=== PATIENT | male | born 1955 | race Caucasian/White ===

== ENCOUNTER 2017-10-08 09:01 | Outpatient (CLI) | payer MEDICARE ==
[~2017-10-08] VITALS: Ht 180.3 cm; Wt 103.1 kg
[2017-10-08 09:28] VITALS: BP 133/93
[2017-10-08 10:03] LABS: BASOPHILS # (AUTO) 0.1 10^3/uL (0.0-0.1); BASOPHILS % (AUTO) 1 % (0-10); EOSINOPHILS # (AUTO) 0.3 10^3/uL (0.0-0.3); EOSINOPHILS % (AUTO) 4 % (0-10); LYMPHOCYTES # (AUTO) 1.3 X 10^3 (1.0-4.0); LYMPHOCYTES % (AUTO) 18 % (12-44); MEAN CORPUSCULAR HEMOGLOBIN 29 PG (25-34); MEAN CORPUSCULAR HGB CONC 33 G/DL (32-36); MEAN CORPUSCULAR VOLUME 89 FL (80-99); MEAN PLATELET VOLUME 9.6 FL (7.4-10.4); MONOCYTES # (AUTO) 0.6 X 10^3 (0.0-1.0); MONOCYTES % (AUTO) 8 % (0-12); NEUTROPHILS # (AUTO) 5.1 X 10^3 (1.8-7.8); NEUTROPHILS % (AUTO) 70 % (42-75); PLATELET COUNT 202 10^3/uL (130-400); RED BLOOD COUNT 4.39 10^6/uL (4.35-5.85); RED CELL DISTRIBUTION WIDTH 13.7 % (10.0-14.5); WHITE BLOOD COUNT 7.4 10^3/uL (4.3-11.0)
[2017-10-08] MEDS ORDERED: TIZA4TAB3 PO (10:12)
[2017-10-08] MEDS ORDERED: METO50TA2 PO (10:12)
[2017-10-08] MEDS ORDERED: ACYC400T PO (10:12)
[2017-10-08] MEDS ORDERED: FERR-84 PO (10:12)
[2017-10-08] MEDS ORDERED: MELA10CA2 PO (10:12)
[2017-10-08] MEDS ORDERED: OMEG-154 PO (10:12)
[2017-10-08] MEDS ORDERED: RANI-515 PO (10:12)
[2017-10-08] MEDS ORDERED: OMEP20TA7 PO (10:12)
[2017-10-08] MEDS ORDERED: GABA-488 PO (10:12)
[2017-10-08] MEDS ORDERED: L.AC1CAP6 PO (10:12)
[2017-10-08] MEDS ORDERED: SERT100T8 PO (10:12)
[2017-10-08] MEDS ORDERED: CLON0.5T3 PO (10:12)
== END 2017-10-08 11:02 | disposition home or self-care (01) ==
LOC: PREOP 09:01
PROVIDERS: ATTEND Orthopaedic Surgery
DX: Z01.812 Encounter for preprocedural laboratory examination (principal); Z11.2 Encounter for screening for other bacterial diseases; M96.0 Pseudarthrosis after fusion or arthrodesis; Z22.322 Carrier or suspected carrier of Methicillin resistant Staphylococcus aureus
CPT/HCPCS: 36415; 85025; 86850; 86900; 86901; 87081

== ENCOUNTER 2017-10-22 06:30 | Inpatient (IN) | payer MEDICARE ==
[~2017-10-22] VITALS: Ht 180.3 cm; Wt 103.1 kg
[~2017-10-22 06:30] MED LIST: ACYC400T PO; CLON0.5T3 PO; FERR-84 PO; GABA-488 PO; L.AC1CAP6 PO; MELA10CA2 PO; METO50TA15 PO; OMEG-154 PO; OMEP20TA7 PO; RANI-515 PO; SERT100T8 PO; TIZA4TAB3 PO
[2017-10-22] MEDS ORDERED: LACTATED RINGERS 1,000 ML IV PRN (07:14)
[2017-10-22] MEDS ORDERED: FAMOTIDINE 20MG/2ML IV (PEPCID) IV ONE ×2 (07:15→07:30)
[2017-10-22] MEDS ORDERED: CLINDAMYCIN INJECTION 600 MG in NS (IVPB) 50 ML IV ONE (07:15)
[2017-10-22] MEDS ORDERED: NS (IVPB) 50 ML ONE (07:22)
[2017-10-22] MEDS ORDERED: CLINDAMYCIN 600 MG/4ML (CLEOCIN) VIAL ONE (07:22)
[2017-10-22] MEDS ORDERED: ONDANSETRON 4 MG/2 ML (SDV) Z0FRAN ONE (07:41)
[2017-10-22] MEDS ORDERED: SEVOFLURANE (ULTANE) 15 ML INHAL SOLN ONE ×11 (07:41→11:05)
[2017-10-22] MEDS ORDERED: DEXAMETHASONE 10 MG/ML (DECADRON) 1 ML VIAL ONE (07:41)
[2017-10-22] MEDS ORDERED: SUCCINYLCHOLINE INJ 100 MG/5 ML SYR ONE (07:41)
[2017-10-22] MEDS ORDERED: LIDOCAINE PF 2% 5 ML (XYLOCAINE) VIAL ONE (07:41)
[2017-10-22] MEDS ORDERED: MIDAZOLAM 2 MG/2 ML (VERSED) VIAL ONE (07:41)
[2017-10-22] MEDS ORDERED: DEXMEDETOMIDINE 200 MCG/2 ML (PRECEDEX) VIAL IV ONE ×2 (07:41→10:41)
[2017-10-22] MEDS ORDERED: fentaNYL INJECTION 250 MCG/5 ML AMP ONE (07:41)
[2017-10-22] MEDS ORDERED: proPOfol 200 MG/20 ML (DIPRIVAN) VIAL IV ONE (07:41)
[2017-10-22] MEDS ORDERED: ROCURONIUM 50 MG/5 ML (ZEMURON) VIAL IV ONE (07:41)
[2017-10-22] MEDS ORDERED: TRANEXAMIC ACID 100 MG/ML 10 ML INJECTION IV ONE (09:03)
[2017-10-22] MEDS ORDERED: BUP/EPI 0.5% 1:200,000 (MARCAINE) 10ML VIAL IJ ONE (09:09)
[2017-10-22] MEDS: LACTATED RINGERS 1,000 ML IV PRN ×2 (09:52→14:00)
[2017-10-22] MEDS ORDERED: NS (IVPB) 100 ML ONE (10:41)
[2017-10-22] MEDS ORDERED: BACITRACIN 100,000 UNIT/NS 1000 ML POUR BOTTLE IR ONE ×2 (10:45)
[2017-10-22] MEDS ORDERED: VANCOMYCIN 1000 MG/VIAL ONE (12:17)
[2017-10-22] MEDS ORDERED: ONDANSETRON 4 MG/2 ML (SDV) Z0FRAN IVP PRN (13:15)
[2017-10-22] MEDS ORDERED: HYDROmorphone (DILAUDID) 2 MG/ML VIAL IVP PRN (13:15)
[2017-10-22] MEDS: morphine INJ 10 MG/ML 1ML (SYR OR VIAL) IVP PRN ×2 (13:21→13:25)
[2017-10-22] MEDS ORDERED: ACETAMINOPHEN 325 MG TABLET/CAPLET (TYLENOL) PO PRN (13:45)
[2017-10-22] MEDS ORDERED: ONDANSETRON 4 MG/2 ML (SDV) Z0FRAN IV PRN (13:45)
[2017-10-22] MEDS ORDERED: BISACODYL 10 MG SUPP (DULCOLAX) PR PRN (13:45)
[2017-10-22] MEDS ORDERED: BISACODYL 5 MG (DULCOLAX) TABLET PO PRN (13:45)
[2017-10-22 15:15] VITALS: BP 90/55
[2017-10-22 15:35] VITALS: BP 95/55
[2017-10-22] MEDS ORDERED: INFLUENZA TRIvalent 2017-2018 0.5 ML/45 MCG SYR IM ONE (15:45)
[2017-10-22 16:05] VITALS: BP 107/62
[2017-10-22] MEDS: oxyCODONE/APAP 5/325MG (PERCOCET 5) TABLET PO PRN (16:05)
[2017-10-22] MEDS: FERROUS SULF 325 MG (IRON) TAB PO SCH (16:05)
[2017-10-22] MEDS: GABAPENTIN 300 MG (NEURONTIN) CAP PO SCH ×2 (16:05→21:46)
[2017-10-22] MEDS: morphine INJ 4 MG/ML 1 ML (VIAL/SYRINGE) IVP PRN ×2 (16:08→21:48)
[2017-10-22 16:35] VITALS: BP 100/58
--- NOTE | 2017-10-22 17:02 | Diagnostic Imaging Report ---
EXAMINATION: Intraoperative view of the lumbar spine. INDICATION: Revision of lumbar spine fusion. FLUOROSCOPY TIME: 4 seconds. IMPRESSION: The provided image demonstrates posterior fusion hardware and evidence of laminectomy involving the lower lumbar spine with screws seen bilaterally through the SI joints. There is suggestion of disc cage placement involving the lower three lumbar spine levels and anterior fusion hardware. Dictated by: Dictated on workstation # [id number]
[2017-10-22 19:25] VITALS: BP 115/60
[2017-10-22] MEDS ORDERED: raNItidine (ZANTAC) 150 MG TAB NON-FORMULARY PO SCH (21:00)
[2017-10-22] MEDS: ACYCLOVIR 400 MG TABLET (ZOVIRAX) PO SCH (21:46)
[2017-10-22] MEDS: clonazePAM 0.5 MG (KlonoPIN) TAB PO SCH (21:47)
[2017-10-22] MEDS: FAMOTIDINE 20 MG (PEPCID) TABLET PO SCH (21:47)
[2017-10-22] MEDS: DOCUSATE SODIUM 100 MG (COLACE) CAP PO SCH (21:47)
--- NOTE | 2017-10-22 23:38 | OPERATIVE REPORT ---
DATE OF SERVICE: 10/22/2017 SURGEON: Mike Mabry D.O. SURFACER: Brian Chappell This is a medically necessary procedure. Master Chef is necessary for retraction of vital neurovascular structures. Without an assistant production editor, the procedure would not be possible. PREOPERATIVE DIAGNOSES: 1. Pseudoarthrosis. 2. Failure of internal hardware. 3. Back pain. POSTOPERATIVE DIAGNOSES: 1. Pseudoarthrosis. 2. Failure of internal hardware. 3. Back pain. PROCEDURE PERFORMED: 1. Removal of hardware. 2. Exploration of fusion. 3. Revision fusion T8 to pelvis. 4. Revision posterior instrumentation T8 to pelvis. 5. Pelvic fixation at the end of the construct. 6. Use of bone morphogenic protein. 7. Use of local bone autograft. COMPLICATIONS: None. SPECIMEN SENT: None. DRAIN PLACED: A subfascial Hemovac drain. ANESTHESIA: General endotracheal tube anesthesia with local anesthetic. ESTIMATED BLOOD LOSS: Minimal. HISTORY OF PRESENT ILLNESS: The patient is a very well known patient of mine, 62-year-old patient who has undergone multiple prior thoracic and lumbar instrumented fusion procedures without significant difficulty getting a fusion on the patient and eventually his hardware fractured on both the left and the right and his screws were noted to be loose and a pseudoarthrosis was evident on imaging. The patient had severe symptoms associated with the pseudoarthrosis. He failed conservative measures. He did wish to proceed with revision, posterior instrumentation and fusion. He understood the risks and benefits. OPERATION: The patient was identified by name on wrist band in the preoperative holding area, his operative site was signed, consent was signed. SCDs were placed. Neuro monitoring was set up and antibiotics were started. He was taken to the operating room theater and placed under general endotracheal tube anesthesia and transferred to the operating room table in the prone position. All bony prominences were well padded. He was prepped and draped in the usual sterile fashion. Formal timeout was conducted. At this point, a midline lumbar incision was then made. This incision extended from T8 down to the pelvis. Bilateral subperiosteal approach then took place. Please note there was significant scar tissue, which made the remainder of the procedure quite difficult. After my exposure of all of the hardware, I did remove all of the set screws and I have removed the jamal on the left and the jamal on the right. The L5-S1 and pelvic screws on the right were solid; however, the L5 and S1 screws on the left were quite loose. Therefore, I did remove those 2 pedicle screws and re-instrumented with 8.5 mm pedicle screws achieving a better purchase; however, it was not great. At this point, I measured and cut a new 5.5 mm Medtronic jamal and I bent both of them to the appropriate contour. I passed these rods on both the left and the right through the [place] pedicle screws at T8, T9, T10, T11, T12. Please note that the pedicle screw at L1 had been fractured on both sides and this screw remnant was removed on both sides prior to placing the jamal. Once I had settled the jamal through the tulips on all of the screws, which included down to the pelvis, I placed set screws and then finally tightened those set screws. Please note that I did reuse the set screws in the thoracic part of this procedure. Once all of the instrumentation was in place and tightened, I did irrigate the wound with 2 liters of antibiotic-enhanced irrigation. I placed a deep subfascial Hemovac drain. I decorticated the remaining posterior bony elements. Please note that I did use a [place] rongeur to remove as much scar tissue off of the lateral masses that I could to promote posterior spinal fusion. I packed collagen soaked with bone morphogenic protein as well as allograft in the left and the right gutter to promote posterior spinal fusion. Please note that I also added an additional jamal on the right side using lateral connectors for increased stability to prevent future hardware failure. I passed a subfascial Hemovac drain and sewed it into place. I closed the wound in my usual layered fashion utilizing 0 Vicryl, followed by 2-0 Vicryl, followed by juan m for skin. I applied dressings and I took the patient in the supine position to the PACU where he awoke without incident. He tolerated the procedure well. Plan at this time is to get the patient out of bed on postop day #1, discontinue his Ellis and his drain per my protocol. Please note instrumentation utilized for this was Medtronic for everything. Note, neuro monitoring was stable throughout the procedure. Job ID: [id number] DocumentID: [id number] Dictated Date: 10/22/2017 13:24:53 Hydraulic Engineer Date: 10/22/2017 22:01:57 Dictated By: MIKE MABRY DO
[2017-10-23] VITALS: BP 122/62
[2017-10-23] MEDS: oxyCODONE/APAP 5/325MG (PERCOCET 5) TABLET PO PRN ×3 (01:14→20:15)
[2017-10-23 04:00] VITALS: BP 126/60
[2017-10-23 05:32] LABS: HEMOGLOBIN 10.8 G/DL (13.3-17.7); MEAN PLATELET VOLUME 9.9 FL (7.4-10.4); RED BLOOD COUNT 3.63 10^6/uL (4.35-5.85); RED CELL DISTRIBUTION WIDTH 14.1 % (10.0-14.5); WHITE BLOOD COUNT 10.6 10^3/uL (4.3-11.0)
[2017-10-23] MEDS: morphine INJ 4 MG/ML 1 ML (VIAL/SYRINGE) IVP PRN (05:39)
[2017-10-23 05:53] LABS: ALANINE AMINOTRANSFERASE 11 U/L (0-55); ALBUMIN 3.5 GM/DL (3.2-4.5); ALKALINE PHOSPHATASE 72 U/L (40-136); BILIRUBIN,TOTAL 0.3 MG/DL (0.1-1.0); BUN/CREATININE RATIO 11; CALCIUM 8.7 MG/DL (8.5-10.1); CARBON DIOXIDE 26 MMOL/L (21-32); CHLORIDE 106 MMOL/L (98-107); CREATININE SERUM 0.89 MG/DL (0.60-1.30); GFR ESTIMATED > 60; GLUCOSE 139 MG/DL (70-105); POTASSIUM 4.7 MMOL/L (3.6-5.0); SODIUM 140 MMOL/L (135-145); TOTAL PROTEIN 6.2 GM/DL (6.4-8.2)
[2017-10-23] MEDS: FERROUS SULF 325 MG (IRON) TAB PO SCH ×3 (06:05→16:03)
[2017-10-23] MEDS: MULTIVIT W/MINERALS TAB (THERAGRAN M) PO SCH (06:06)
--- NOTE | 2017-10-23 07:39 | Progress Note (SOAP) ---
Subjective Date Seen by Provider: Oct 23, 2017 Time Seen by Provider: 07:36 Subjective/Events-last exam KARLEE. S/p revision lumbar PSIF. Doing very well with minimal pain. denies radicular leg pain. denies numbness or tinlging. would like to go home tomorrow. Objective Exam Vital Signs Date Time Temp Pulse Resp B/P (MAP) Pulse Ox O2 Delivery O2 Flow Rate FiO2 10/23/17 06:57 96 Nasal Cannula 2.50 10/23/17 04:00 97.3 73 18 126/60 (82) 97 Nasal Cannula 2.50 10/23/17 00:00 97.5 68 17 122/62 (82) 94 Nasal Cannula 2.50 10/22/17 19:25 97.7 72 20 115/60 (78) 98 Nasal Cannula 2.50 10/22/17 17:54 Nasal Cannula 3.50 10/22/17 16:35 97.7 58 20 100/58 (72) 98 Nasal Cannula 2.50 10/22/17 16:05 97.7 60 20 107/62 (77) 97 Nasal Cannula 2.50 10/22/17 15:35 97.2 56 20 95/55 (68) 95 Nasal Cannula 2.50 10/22/17 15:15 96.6 55 20 90/55 (67) 95 Nasal Cannula 2.50 10/22/17 09:55 98.0 I & O 10/23/17 07:00 Intake Total 2694 ml Output Total 3790 ml Balance -1096 ml Capillary Refill : General Appearance: No Apparent Distress Neurologic/Psychiatric: Other (lumbar wound CDI, 5/5 motor antonio LE, NVSI, 2/4 DP , PT) Results Lab Laboratory Tests 10/23/17 05:19: White Blood Count 10.6, Red Blood Count 3.63L, Hemoglobin 10.8L, Hematocrit 33L , Mean Corpuscular Volume 91, Mean Corpuscular Hemoglobin 30, Mean Corpuscular Hemoglobin Concent 33, Red Cell Distribution Width 14.1, Platelet Count 164, Mean Platelet Volume 9.9, Sodium Level 140, Potassium Level 4.7, Chloride Level 106, Carbon Dioxide Level 26, Anion Gap 8, Blood Urea Nitrogen 10, Creatinine 0.89, Estimat Glomerular Filtration Rate > 60, BUN/Creatinine Ratio 11, Glucose Level 139H, Calcium Level 8.7, Total Bilirubin 0.3, Aspartate Amino Transf (AST/ SGOT) 16, Alanine Aminotransferase (ALT/SGPT) 11, Alkaline Phosphatase 72, Total Protein 6.2L, Albumin 3.5 Assessment/Plan Assessment/Plan Assess & Plan/Chief Complaint ASSESSMENT: s/p lumbar revision PSIF POD 1 PLAN: OOB with assist pain control d/c steiner and drain per protocol plan to d/c home sunday Clinical Quality Measures DVT/VTE Risk/Contraindication: Risk Factor Score Per Nursin RFS Level Per Nursing on Admit: 4+=Very High MARCELLO HOFFMANN DO Oct 23, 2017 07:39
[2017-10-23 08:00] VITALS: BP 112/64
--- NOTE | 2017-10-23 09:21 | Physical Therapy Evaluation ---
PT Evaluation-General Medical Diagnosis Admission Date Oct 22, 2017 at 06:30 Medical Diagnosis: revision lumbar PSIF Onset Date: Oct 22, 2017 Therapy Diagnosis Therapy Diagnosis: debility Height/Weight Height (Feet): 5 Height (Inches): 11.00 Weight (Pounds): 227 Weight (Ounces): 6.0 Precautions Precautions/Isolations: Standard Precautions Weight Bear Status Right Lower Extremity: Right Full Weight Bearing Left Lower Extremity: Left Full Weight Bearing Referral Physician: Raghavendra Reason for Referral: Evaluation/Treatment Medical History Current History per patient report, he fell ~ 4-5 months ago resulting in hardware "dislodging" Reviewed History: Yes Social History Home: Single Level Current Living Status: Spouse Prior/Core FIM Prior Level of Function Functional [place] Measure 0=Not Assessed/NA 4=Minimal Assistance 1=Total Assistance 5=Supervision or Setup 2=Maximal Assistance 6=Modified [place] 3=Moderate Assistance 7=Complete [place] Bed Mobility: 6 Transfers (B,C,W/C) (FIM): 6 Gait: 6 PT Evaluation-Current Subjective Patient states, "I don't know why you guys think this doesn't hurt. I can't believe I will be going home tomorrow." Pain Numeric Pain Scale: 5-Moderate Pain Location: Posterior Location Body Site: Back Pain Description: Ache, Acute Comment: incisional pain Objective Patient Orientation: Normal For Age Problem Solving: Good Attachments: Ellis Catheter, IV patient donned back brace with set up only ROM/Strength ROM Lower Extremities bilateral LE WNL Strength Lower Extremities right knee flexion/extension 4/5; hip flexion 4/5; DF/PF 4/5 left knee flexion/extension 4/5; hip flexion 4/5; DF/PF 4/5 Integumentary/Posture Integumentary refer to nursing notes Bowel Incontinence: No Bladder Incontinence: Ellis Cath Posture WFL; forward head, rounded shoulder posture in stand Neuromuscular (Tone, Coordination, Reflexes) grossly intact Sensory Vision: Wears Glasses Hearing: Functional Sensation Right Lower Extremit: Intact Sensation Left Lower Extremity: Intact Transfers Functional [place] Measure 0=Not Assessed/NA 4=Minimal Assistance 1=Total Assistance 5=Supervision or Setup 2=Maximal Assistance 6=Modified [place] 3=Moderate Assistance 7=Complete [place] Transfers (B, C, W/C) (FIM): 6 Scootin Rollin Supine to/from Sit: 6 Sit to/from Stand: 6 Gait Mode of Locomotion: Walk Anticipated Mode of Locomotion: Walk Gait (FIM): 6 Distance (FIM): 3=150 ft Distance: 550' Gait Level of Assist: 6 Gait Assistive Device: FWW Comments/Gait Description safe and functional with FWW Balance Sitting Static: Normal Sitting Dynamic: Normal Standing Static: Normal Standing Dynamic: Normal Assessment/Needs 62 y.o. male, will benefit from short term skilled PT to address functional mobility to ensure safe return to home with spouse at maximum LOF. Rehab Potential: Good PT Short Term Goals Short Term Goals Time Frame: Oct 26, 2017 Transfers (B,C,W/C) (FIM): 6 Gait (FIM): 6 Distance (FIM): 3=150 ft Gait Level of Assist: 6 Gait Assistive Device: None, FWW PT Plan Treatment/Plan Treatment Plan: Continue Plan of Care Treatment Plan: Education, Functional Activity Gómez, Functional Strength, Gait , Safety, Therapeutic Exercise Treatment Duration: Oct 26, 2017 Frequency: 7 times per week Estimated Hrs Per Day: .25 hour per day Patient and/or Family Agrees t: Yes Safety Risks/Education Patient Education: Safety Issues Teaching Recipient: Patient Teaching Methods: Discussion Response to Teaching: Verbalize Understanding Discharge Recommendations Therapy D/C Recommendations: Home w/ Family Support Time/GCodes Time In: 820 Time Out: 844 Total Billed Treatment Time: 24 Total Billed Treatment 1 visit [facility] 24 min NORBERTO LAN PT Oct 23, 2017 09:21
[2017-10-23] MEDS: FAMOTIDINE 20 MG (PEPCID) TABLET PO SCH ×2 (09:29→20:14)
[2017-10-23] MEDS: DOCUSATE SODIUM 100 MG (COLACE) CAP PO SCH ×2 (09:29→20:14)
[2017-10-23] MEDS: clonazePAM 0.5 MG (KlonoPIN) TAB PO SCH ×2 (09:29→20:14)
[2017-10-23] MEDS: SERTRALINE 100 MG (ZOLOFT) TAB PO SCH (09:29)
[2017-10-23] MEDS: GABAPENTIN 300 MG (NEURONTIN) CAP PO SCH ×3 (09:29→20:14)
[2017-10-23] MEDS: ACYCLOVIR 400 MG TABLET (ZOVIRAX) PO SCH ×2 (09:29→20:15)
[2017-10-23] MEDS: meTOprolol TARTRATE 50 MG (LOPRESSOR) TAB PO SCH (09:31)
--- NOTE | 2017-10-23 10:25 | Consultation-Hospitalist ---
HPI History of Present Illness: HPI/Chief Complaint Pt is a 62yoCM with a PMH of HTN who was admitted under ortho services following PSIF. He reports he has had multiple surgeries on his back in the past and he feels he is doing well. He has been up and ambulating. He is passing gas. He is eating and drinking well. He otherwise has no concerns. He would like his steiner NE-ed and feels he will be able to ambulate to the bathroom. He has a history of HTN and it was well controlled on atenolol but was recently switched to metoprolol but he has tolerated it well. Source: patient Exam Limitations: no limitations Date Seen 10/23/17 Attending Physician Mike Mabry DO PCP No,Local Physician Referring Physician Dr Mabry Date of Admission Oct 22, 2017 at 06:30 Home Medications & Allergies Home Medications Reviewed patient Home Medication Reconciliation Form Allergies Allergies Coded Allergies Sulfa (Sulfonamide Antibiotics) (Verified Allergy, Severe, YOUNG-ERIN SYNDROME, 10/22/17) Penicillins (Verified Allergy, Mild, RASH, 10/22/17) Past Iqeqroc-Afxxzs-Zvfqtj Hx Patient Social History Alcohol Use: Denies Use Recreational Drug Use: No Smoking Status: Never a Smoker Physical Abuse Screen: No Sexual Abuse: No Recent Foreign Travel: No Contact w/other who traveled: No Recent Hopitalizations: No Recent Infectious Disease Expo: No Immunizations Up To Date Date of Influenza Vaccine: Aug 05, 2016 Seasonal Allergies Seasonal Allergies: No Surgeries Yes (LYNNE TKR, R ELBOW X6, BACK X7, LYNNE CTR, R HAND NERVES, LYNNE KNEE SCOPES) Respiratory No Cardiovascular Yes (HX OCC PVC'S) Neurological Yes (RELATED TO BACK/NECK PROBLEMS) Reproductive System Sexually Transmitted Disease: No HIV/AIDS: No Genitourinary Yes Kidney Stones Gastrointestinal Yes Gastroesophageal Reflux Musculoskeletal Yes Degenerate Disk Disease, Arthritis, Chronic Back Pain Endocrine History of Endocrine Disorders: No HEENT History of HEENT Disorders: Yes (GLASSES, DENTURES) Loss of Vision: Bilateral Hearing Impairment: Denies Cancer No Psychosocial History of Psychiatric Problem: Yes Behavioral Health Disorders: Anxiety, Depression Integumentary History of Skin or Integumenta: No Blood Transfusions History of Blood Disorders: Yes (ANEMIA) Family Medical History Family Hx: FH: HTN (hypertension) 19 FATHER 19 MOTHER FH: heart disease 19 FATHER 19 MOTHER FHx: asthma 19 FATHER 19 MOTHER Review of Systems Constitutional: No chills, No fever EENTM: No nose congestion, No throat pain Respiratory: No cough, No short of breath Cardiovascular: No chest pain, No edema, No palpitations Gastrointestinal: No abdominal pain, No constipation, No diarrhea, No nausea, No vomiting Genitourinary: No dysuria, No frequency Musculoskeletal: back pain Skin: No lesions, No rash Psychiatric/Neurological: Denies Headache, Denies Numbness, Denies Tingling Physical Exam Physical Exam Vital Signs Vital Sign - Last 12Hours 10/22/17 10/22/17 09:55 15:15 Temp 98.0 Pulse 55 Resp 20 B/P (MAP) 90/55 (67) Pulse Ox 95 O2 Delivery Nasal Cannula O2 Flow Rate 2.50 Capillary Refill : General Appearance: No Apparent Distress, WD/WN HEENT: PERRL/EOMI, Moist Mucous Membranes Neck: Non Tender, Supple Respiratory: Lungs Clear, No Respiratory Distress Cardiovascular: Regular Rate, Rhythm, No Murmur Gastrointestinal: Normal Bowel Sounds, Non Tender, Soft Back: Other (brace in place) Extremity: Normal Capillary Refill, No Calf Tenderness Neurologic/Psychiatric: Alert, Oriented x3, Normal Mood/Affect Skin: Normal Color, Warm/Dry Results Results/Procedures Lab Laboratory Tests 10/23/17 05:19 Assessment/Plan Admission Diagnosis s/p PSIF Diagnosis/Problems Diagnosis/Problems (1) HTN (hypertension) Assessment & Plan: Continue Metoprolol well controlled Qualifiers: Qualified Codes: I10 - Essential (primary) hypertension (2) Normocytic anemia Assessment & Plan: Likely due to acute loss from surgery (3) Prophylactic measure Assessment & Plan: Saline lock Bowel regimen Reg diet Clinical Quality Measures DVT/VTE Risk/Contraindication: Risk Factor Score Per Nursin RFS Level Per Nursing on Admit: 4+=Very High SERGEY CHARLES MD Oct 23, 2017 10:25
--- NOTE | 2017-10-23 11:15 | Diagnostic Imaging Report ---
EXAMINATION: Three views of the lumbar spine. INDICATION: Postoperative revision posterior fusion. FINDINGS: There are posterior fusion transpedicular screws and connecting rods seen in the lower thoracic and lumbar spine. There are fractured transpedicular screws within the bony tract at the L2, L3, and L4 levels. Transpedicular screws through L5 and S1 and through the SI joints at the S2 level appear intact as well as transpedicular screws around the thoracolumbar junction. There is also anterior fusion hardware and disc cage markers seen involving L2-3, L3-4, L4-5, and L5-S1. There is suggestion of osseous fusion at these levels except for the vertebral bodies at L3-4 where there is probable pseudoarthrosis. IMPRESSION: Post surgical changes with hardware description as above. Dictated by: Dictated on workstation # [id number]
[2017-10-23 12:00] VITALS: BP 124/73
--- NOTE | 2017-10-23 14:33 | Physical Therapy Daily Note ---
PT Daily Note-Current Subjective Patient is very agreeable to participate with therapy. He reports he is ready to go home tomorrow. Pain Numeric Pain Scale: 5-Moderate Pain Location: Posterior Location Body Site: Back Pain Description: Ache, Acute Mental Status Patient Orientation: Normal For Age donns back brace independently Transfers Functional [place] Measure 0=Not Assessed/NA 4=Minimal Assistance 1=Total Assistance 5=Supervision or Setup 2=Maximal Assistance 6=Modified [place] 3=Moderate Assistance 7=Complete IndependenceIRFPAI Quality Coding Scale 6 Independent with activity with or without an assistive device 5 Patient requires set up or clean up by helper. Patient completes activity by themselves 4 Supervision or touching assist (CGA). [place] provide cues , steadying assist 3 The helper provides less than half the effort to complete the activity 2 The helper provides more than half the effort to complete the activity 1 Dependent. The helper does all the effort to complete an activity 7 Patient refused to complete or attempt activity 9 The patient did not perform the activity before the current illness or injury 88 Not attempted due to Medical conditions or safety concerns Transfers (B, C, W/C) (FIM): 6 Scootin Rollin Supine to/from Sit: 6 Sit to/from Stand: 6 Weight Bearing Right Lower Extremity: Right Full Weight Bearing Left Lower Extremity: Left Full Weight Bearing Gait Training Gait (FIM): 6 Distance (FIM): 3=150 ft Distance: 400' Gait Level of Assist: 6 Gait Assistive Device: FWW Assessment Patient has been instructed to ambulate PRN in hallway. RN notified. Patient to dismiss to home with spouse tomorrow. PT Short Term Goals Short Term Goals Time Frame: Oct 26, 2017 Transfers (B,C,W/C) (FIM): 6 Gait (FIM): 6 Distance (FIM): 3=150 ft Gait Level of Assist: 6 Gait Assistive Device: None, FWW PT Plan Treatment/Plan Treatment Plan: Continue Plan of Care Treatment Plan: Education, Functional Activity Gómez, Functional Strength, Gait , Safety, Therapeutic Exercise Treatment Duration: Oct 26, 2017 Frequency: 7 times per week Estimated Hrs Per Day: .25 hour per day Patient and/or Family Agrees t: Yes Time/GCodes Time In: 1401 Time Out: 1415 Total Billed Treatment Time: 14 Total Billed Treatment 1 visit [facility] 14 min NORBERTO LAN PT Oct 23, 2017 14:33
[2017-10-23 16:00] VITALS: BP 123/60
--- NOTE | 2017-10-23 17:07 | Anesthesia-General Post-Op ---
General Patient Condition Mental Status/LOC: Same as Preop Cardiovascular: Satisfactory Nausea/Vomiting: Absent Respiratory: Satisfactory Pain: Controlled Complications: Absent Post Op Complications Complications None Follow Up Care/Instructions Patient Instructions None needed. Anesthesia/Patient Condition Patient Condition Patient is doing well, no complaints, stable vital signs, no apparent adverse anesthesia problems. No complications reported per nursing. ALEJANDRO MONTALVO CRNA Oct 23, 2017 17:07
[2017-10-23 20:00] VITALS: BP 147/81
[2017-10-24] VITALS: BP 158/81
[2017-10-24] MEDS: oxyCODONE/APAP 5/325MG (PERCOCET 5) TABLET PO PRN ×2 (00:50→05:49)
[2017-10-24] MEDS: FERROUS SULF 325 MG (IRON) TAB PO SCH ×2 (05:49→11:25)
[2017-10-24] MEDS: MULTIVIT W/MINERALS TAB (THERAGRAN M) PO SCH (05:49)
--- NOTE | 2017-10-24 06:57 | Discharge Summary ---
Diagnosis/Chief Complaint Date of Admission Oct 22, 2017 at 06:30 Date of Discharge Oct 24 2017 Discharge Date: Oct 24, 2017 Admission Diagnosis Admission Diagnosis pseudoarthrosis Discharge Diagnosis pseudoarthrosis Reason Hospital Visit revision posterior spinal fusion, replacement of lumbar hardware Discharge Summary Hospital Course Hospital Course Mr Mathis was admitted for revision lumbar fusion which was peformed without complication and he tolerated well. By POD #2 he was stable, his pain was controlled and he was ambulating with assistance and progressing with therapy. Labs Laboratory Tests 10/23/17 05:19: Red Blood Count 3.63L, Hemoglobin 10.8L, Hematocrit 33L, Glucose Level 139H, Total Protein 6.2L Radiology Reviewed Lumbar AP and lateral x-rays reviewed showing post operative hardware changes without change from intra operative placement Procedures None. Discharge Physical Examination Allergies: Coded Allergies: Sulfa (Sulfonamide Antibiotics) (Verified Allergy, Severe, YOUNG- ERIN SYNDROME, 10/22/17) Penicillins (Verified Allergy, Mild, RASH, 10/22/17) Vitals & I&Os Vital Signs Date Time Temp Pulse Resp B/P (MAP) Pulse Ox O2 Delivery O2 Flow Rate FiO2 10/24/17 00:30 99.5 10/24/17 00:00 91 18 158/81 (106) 97 Room Air 10/23/17 16:00 2.50 General Appearance: Alert, Oriented X3, Cooperative, No Acute Distress HEENT: Atraumatic Respiratory: Normal Air Movement Abdominal: Soft, No Tenderness Extremities: No Clubbing, No Cyanosis, No Edema Skin: No Rashes, No Breakdown Neuro: Normal Speech, Strength at 5/5 X4 Ext, Sensation Intact Psych/Mental Status: Mental Status NL Discussion & Recommendations discussed restrictions and spine precautions will start oral iron at home will follow up in clinic in 2 weeks Discharge Home Medications Reviewed and agree with Discharge Medication list on patient's Discharge Instruction sheet Instructions to Patient/Family Please see electronic discharge instructions given to patient. Clinical Quality Measures DVT/VTE Risk/Contraindication: Risk Factor Score Per Nursin RFS Level Per Nursing on Admit: 4+=Very High YUMI HERNANDEZ Oct 24, 2017 06:57
[2017-10-24] MEDS ORDERED: OXYC-471 PO (07:01)
[2017-10-24] MEDS ORDERED: TIZA4TAB3 PO (07:01)
[2017-10-24] MEDS ORDERED: FERR-84 PO (07:01)
--- NOTE | 2017-10-24 07:03 | Discharge Inst-Simple/Standard ---
Discharge Inst-Standard Discharge Medications New, Converted or Re-Newed RX: RX on Chart Patient Instructions/Follow Up Plan of Care/Instructions/FU: follow up 2 weeks keep incision clean and dry dont bend lift twist push pull Activity as Tolerated: No Discharge Diet: Regular Diet Return to The Hospital For: fever chills shortness of breath chest pain YUMI HERNANDEZ Oct 24, 2017 07:02
[2017-10-24 08:00] VITALS: BP 100/61
[2017-10-24] MEDS: SERTRALINE 100 MG (ZOLOFT) TAB PO SCH (08:36)
[2017-10-24] MEDS: clonazePAM 0.5 MG (KlonoPIN) TAB PO SCH (08:36)
[2017-10-24] MEDS: meTOprolol TARTRATE 50 MG (LOPRESSOR) TAB PO SCH (08:36)
[2017-10-24] MEDS: ACYCLOVIR 400 MG TABLET (ZOVIRAX) PO SCH (08:36)
[2017-10-24] MEDS: GABAPENTIN 300 MG (NEURONTIN) CAP PO SCH (08:36)
[2017-10-24] MEDS: DOCUSATE SODIUM 100 MG (COLACE) CAP PO SCH (08:36)
[2017-10-24] MEDS: FAMOTIDINE 20 MG (PEPCID) TABLET PO SCH (08:36)
[2017-10-24 12:22] VITALS: BP 100/61
--- NOTE | 2017-10-25 13:27 | Physician Query-General Query ---
Physician Query-General Query to Physician: Please clarify: On OP report under procedures, it states use of local bone autograft, in body of repot it states allograft was used. Please clarify which is correct: 1. local bone autograft 2. allograft PHYSICIAN RESPONSE: Based on the clinical findings in the record, please respond to the query above on this document as an addendum. Possible, probable, or questionable diagnosis can be coded for INPATIENTS ONLY. Physician Response: Physician Response Only human allograft was used. If you have questions please contact: Meal Cook: Ext: Thank you for your time and cooperation. Clinical [employer] Agriculture Technician/Meal Cook This is a permanent part of the medical record VIVI LAYNE Oct 25, 2017 13:27 MARCELLO HOFFMANN DO Nov 02, 2017 08:25
== END 2017-10-24 12:22 | disposition home or self-care (01) | DRG 460 ==
LOC: SURG 06:30 → EDSTATUS 08:30 → 4TH 14:24
PROVIDERS: ADMIT Orthopaedic Surgery; ATTEND Orthopaedic Surgery
PROC: 0RGA0K1 Fusion of Thoracolumbar Vertebral Joint with Nonautologous Tissue Substitute, Posterior Approach, Posterior Column, Open Approach (ICD-10-PCS; 2017-10-22)
PROC: 0SG00K1 Fusion of Lumbar Vertebral Joint with Nonautologous Tissue Substitute, Posterior Approach, Posterior Column, Open Approach (ICD-10-PCS; 2017-10-22)
PROC: 0SG30K1 Fusion of Lumbosacral Joint with Nonautologous Tissue Substitute, Posterior Approach, Posterior Column, Open Approach (ICD-10-PCS; 2017-10-22)
PROC: 0RP604Z Removal of Internal Fixation Device from Thoracic Vertebral Joint, Open Approach (ICD-10-PCS; 2017-10-22)
PROC: 0RPA04Z Removal of Internal Fixation Device from Thoracolumbar Vertebral Joint, Open Approach (ICD-10-PCS; 2017-10-22)
PROC: 0SP004Z Removal of Internal Fixation Device from Lumbar Vertebral Joint, Open Approach (ICD-10-PCS; 2017-10-22)
PROC: 0SP304Z Removal of Internal Fixation Device from Lumbosacral Joint, Open Approach (ICD-10-PCS; 2017-10-22)
PROC: 0RG60K1 Fusion of Thoracic Vertebral Joint with Nonautologous Tissue Substitute, Posterior Approach, Posterior Column, Open Approach (ICD-10-PCS; principal; 2017-10-22 09:23)
DX: M96.0 Pseudarthrosis after fusion or arthrodesis (principal); M96.1 Postlaminectomy syndrome, not elsewhere classified; Z88.0 Allergy status to penicillin; Z88.2 Allergy status to sulfonamides; I10 Essential (primary) hypertension; D64.9 Anemia, unspecified; F41.9 Anxiety disorder, unspecified; F32.9 Major depressive disorder, single episode, unspecified; K21.9 Gastro-esophageal reflux disease without esophagitis; Z87.442 Personal history of urinary calculi; Z96.652 Presence of left artificial knee joint; Z96.621 Presence of right artificial elbow joint
CPT/HCPCS: 36415; 72100; 80053; 85027; 94664